=== PATIENT | male | born 1985 | race Caucasian/White ===

== ENCOUNTER 2019-11-22 10:02 | Emergency (ER) | payer OTHER ==
[~2019-11-22] VITALS: Ht 195.6 cm; Wt 116.8 kg
[2019-11-22] MEDS ORDERED: KETOROLAC 30 MG/1 ML IM ONE (10:30)
[2019-11-22] MEDS ORDERED: DIAZEPAM 5 MG TABLET PO ONE (10:30)
[2019-11-22] MEDS ORDERED: DIAZEPAM 5 MG TABLET ONE (10:36)
[2019-11-22] MEDS ORDERED: KETOROLAC 30 MG/1 ML ONE (10:36)
--- NOTE | 2019-11-22 10:42 | NUR ---
LAB AT BEDSIDE AT 1035 MEDICATED PER EMAR AT 1039 ( DRIVING) FOR LEFT CHEST/NECK PAIN AT 01/27 TO CXR AT 1040
[2019-11-22] MEDS ORDERED: LISI-170 PO (10:43)
[2019-11-22 10:44] LABS: BASOPHILS # (AUTO) 0.03 x10^3/uL (0-0.1); BASOPHILS % (AUTO) 1 % (0-1); EOSINOPHILS # (AUTO) 0.07 x10^3/uL (0-0.4); EOSINOPHILS % (AUTO) 1 % (1-7); LYMPHOCYTES # (AUTO) 2.19 x10^3/uL (1-3.4); LYMPHOCYTES % (AUTO) 38 % (22-44); MD NO; MEAN CORPUSCULAR HGB CONC 34.1 g/dL (33.2-36.2); MEAN CORPUSCULAR VOLUME 87.9 fL (81-97); MEAN PLATELET VOLUME 7.7 fL (7.4-10.4); MONOCYTES # (AUTO) 0.34 x10^3/uL (0.2-0.8); MONOCYTES % (AUTO) 6 % (2-9); NEUTROPHILS # (AUTO) 3.18 x10^3/uL (1.8-6.8); NEUTROPHILS % (AUTO) 55 % (42-75); PLATELET COUNT 273 x10^3/uL (130-400); RED BLOOD COUNT 5.44 x10^6/uL (4.38-5.82); RED CELL DISTRIBUTION WIDTH 12.8 % (9.4-14.8)
[2019-11-22 10:55] LABS: ALBUMIN 4.4 g/dL (3.4-5.0); ANION GAP 5 mmol/L (5-15); CALCIUM 9.5 mg/dL (8.5-10.1); CHLORIDE 106 mmol/L (98-107)
[2019-11-22 10:59] LABS: TROPONIN I < 0.015 ng/mL (0.000-0.045)
--- NOTE | 2019-11-22 11:21 | NUR ---
TASK RN NOTE: PT A&O, NSR ON ACTIMIZE ARCHITECT. RESPS EVEN AND UNLABORED. ALL MONITORS IN PLACE, SPO2 >90% ON ROOM AIR. PT DENIES PAIN, DENIES SOB. PT STATES SX RESOLVED SINCE MED GIVEN. ALL RESULTS BACK, CHART UP FOR RECHECK, AWAITING MD AND DISPO.
[2019-11-22 11:31] VITALS: BP 123/81
--- NOTE | 2019-11-22 11:33 | NUR ---
Rechecked Pt's VS. Pt states he is feeling much better and states he is ready to go home. Pt's VS stable.
--- NOTE | 2019-11-22 12:01 | NUR ---
Gave Pt DC and Rx instructions. Pt verbalized understanding. Pt states he is feeling better. No distress noted at this time. Pt ambulated well.
== END 2019-11-22 12:03 | disposition home or self-care (01) ==
LOC: ED 10:57
DX: S16.1XXA Strain of muscle, fascia and tendon at neck level, initial encounter (principal); S29.012A Strain of muscle and tendon of back wall of thorax, initial encounter; I10 Essential (primary) hypertension; R94.31 Abnormal electrocardiogram [ECG] [EKG]; X58.XXXA Exposure to other specified factors, initial encounter; Y93.89 Activity, other specified; Y92.89 Other specified places as the place of occurrence of the external cause; Y99.8 Other external cause status
CPT/HCPCS: 36415; 71046; 80048; 82040; 83880; 84484; 85025; 93005; 96372; 99285; J1885